=== PATIENT | male | born 1995 | race Caucasian/White ===

== ENCOUNTER 2018-10-16 00:22 | Emergency (ER) | payer OTHER ==
[~2018-10-16] VITALS: Ht 177.8 cm; Wt 72.6 kg
[2018-10-16] MEDS ORDERED: ZOFRAN ODT4 MG PO (01:04)
[2018-10-16 01:15] VITALS: BP 124/70
== END 2018-10-16 01:18 | disposition home or self-care (01) ==
LOC: M.ERS 00:22
DX: R11.10 Vomiting, unspecified (principal)